=== PATIENT | male | born 1990 | race American Indian/Alaskan Native ===

== ENCOUNTER 2019-11-15 21:00 | Emergency (ER) | payer OTHER ==
[2019-11-15 21:24] VITALS: BP 129/74
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
== END 2019-11-16 00:01 | disposition left against medical advice (07) ==
LOC: ED 21:00
DX: Z04.1 Encounter for examination and observation following transport accident (principal); Z53.21 Procedure and treatment not carried out due to patient leaving prior to being seen by health care provider
CPT/HCPCS: 72040; 72100